=== PATIENT | male | born 1975 | race Caucasian/White ===

== ENCOUNTER 2020-05-06 13:56 | Emergency (ER) | payer OTHER, SELFPAY ==
[2020-05-06] MEDS ORDERED: Lidocaine 1% w/Epinephrine 1:100K 30 ML VIAL ONE (14:36)
[2020-05-06 14:52] LABS: #Basophils 0.1 thou/uL (0.0-0.2); #Eosinphils 0.1 thou/uL (0.0-0.7); #Lymphocytes 3.2 thou/uL (1.20-3.40); #Monocytes 1.1 thou/uL (0.11-0.59); #Neutrophils 7.9 thou/uL (1.40-6.50); %Basophils 0.9 % (0.0-1.0); %Eosinophils 0.7 % (0.0-10.0); %Lymphocytes 25.8 % (21.0-51.0); %Monocytes 9.1 % (0.0-10.0); %Neutrophils 63.6 % (42.0-75.0); Hemoglobin 15.1 g/dL (14.0-18.0); Mean Corpuscular HGB CONC 31.5 g/dL (32.0-36.0); Mean Corpuscular Hemoglobin 31.1 pg (27.0-31.0); Mean Corpuscular Volume 98.7 fL (78.0-98.0); Mean Platelet Volume 8.1 fL (7.4-10.4); Platelet Count 242 thou/uL (130-400); RBC Distribution Width 11.4 % (11.5-14.5); Red Blood Cell (RBC) Count 4.86 mill/uL (4.70-6.10); White Blood Cell (WBC) Count 12.4 thou/uL (4.8-10.8)
[2020-05-06] MEDS ORDERED: Clindamycin/D5W 900 mg/50 ml Premix Bag ONE (14:52)
[2020-05-06] MEDS ORDERED: HYDROcodone/Acetaminophen 5/325 mg Tablet ONE (14:54)
[2020-05-06 15:09] LABS: Anion Gap 15 mmol/L (10-20); BUN (Urea Nitrogen) 10 mg/dL (8.9-20.6); Calc. Creatinine Clearance 0 mL/min (70-130); Calcium 9.6 mg/dL (7.8-10.44); Carbon Dioxide 25 mmol/L (22-29); Chloride 100 mmol/L (98-107); Estimated GFR-MDRD 79; Glucose 90 mg/dL (70-105); Potassium 4.2 mmol/L (3.5-5.1); Sodium 136 mmol/L (136-145)
== END 2020-05-06 16:05 | disposition home or self-care (01) ==
LOC: NAV ERS 13:56
DX: L02.415 Cutaneous abscess of right lower limb (principal); I89.1 Lymphangitis; F17.210 Nicotine dependence, cigarettes, uncomplicated
CPT/HCPCS: 10060; 80048; 83605; 85025; 87040; 87070; 87077; 87186; 87205; 96365; J2001; J3490; J7070